=== PATIENT | female | born 1995 | race Two or more races ===

== ENCOUNTER 2023-04-20 19:37 | Emergency (ER) | payer MEDICAID ==
[~2023-04-20] VITALS: Ht 157.5 cm; Wt 100.0 kg
[2023-04-20] MEDS ORDERED: GuaiFENesin/D-METHORPHAN [SUGAR-FREE] 200-20MG/10 ML SYRUP UDCUP PO ONE (20:15)
[2023-04-20] MEDS ORDERED: KETOROLAC TROMETHAMINE 60 MG/2 ML VIAL IM ONE (20:15)
[2023-04-20] MEDS ORDERED: ACETAMINOPHEN/CODEINE 300-30 MG TABLET PO ONE (20:15)
[2023-04-20 20:44] LABS: COVID AG,FIA SOURCE NASAL SWAB
[2023-04-20 21:13] LABS: SARS-COV2 (COVID) ANTIGEN,FIA Negative (Negative)
[2023-04-20 21:13] LABS: BASOPHILS % (AUTO) 0.4 % (0.0-2.0); EOSINOPHILS % (AUTO) 0.1 % (1.0-6.0); HEMATOCRIT 31.4 % (36-46); HEMOGLOBIN 10.8 g/dL (12.0-16.0); LYMPHOCYTES # (AUTO) 2.4 K/uL (1.0-4.8); LYMPHOCYTES % (AUTO) 35.4 % (22.0-44.0); MEAN CORPUSCULAR HEMOGLOBIN 31.6 pg (26.0-34.0); MEAN CORPUSCULAR HGB CONC 34.5 G/dL (31.0-37.0); MEAN CORPUSCULAR VOLUME 91 fL (80-100); MONOCYTES # (AUTO) 0.9 K/uL (0.1-1.0); MONOCYTES % (AUTO) 13.1 % (2.0-9.0); NEUTROPHILS # (AUTO) 3.5 K/uL (1.8-7.7); PLATELET COUNT (AUTO) 305 K/uL (150-450); RED BLOOD CELL COUNT(AUTO) 3.43 MIL/uL (4.00-5.20); RED CELL DISTRIBUTION WIDTH 14.1 % (11.5-14.5); WHITE BLOOD COUNT (AUTO) 6.8 K/uL (4.5-11.0)
[2023-04-20 21:15] LABS: INFLUENZA TYPE A NEGATIVE FOR TYPE A (NEGATIVE); INFLUENZA TYPE B NEGATIVE FOR TYPE B (NEGATIVE)
[2023-04-20 21:17] LABS: APPEARANCE,URINE HAZY (CLEAR); BILIRUBIN,URINE NEGATIVE (NEGATIVE); COLOR,URINE YELLOW (YELLOW); GLUCOSE, URINE (UA) NEGATIVE (NEGATIVE); KETONES,URINE NEGATIVE (NEGATIVE); LEUKOCYTE ESTERASE ,URINE LARGE (NEGATIVE); NITRATE,URINE NEGATIVE (NEGATIVE); OCCULT BLOOD,URINE LARGE (NEGATIVE); PH,URINE 7.5 (5.0-8.0); PROTEIN,URINE TRACE mg/dL (NEGATIVE); SPECIFIC GRAVITIY, URINE 1.014 (1.003-1.030)
[2023-04-20 21:19] LABS: ANION GAP 6 mmol/L (8-16); CALCIUM, TOTAL 8.5 mg/dL (8.8-10.5); CARBON DIOXIDE 28 mmol/L (22-29); CHLORIDE 104 mmol/L (98-107); CREATININE 0.75 mg/dL (0.60-1.30); GLOMERULAR FILTR. RATE CALC > 60 mL/min (>60); GLUCOSE,RANDOM 103 mg/dL (70-110); POTASSIUM 3.8 mmol/L (3.5-5.1); SODIUM SERUM 138 mmol/L (136-145); UREA NITROGEN, BLOOD 9 mg/dL (7-18)
[2023-04-20 21:40] LABS: SQUAMOUS EPITHELIAL CELL,UR Many /LPF (None Seen)
[2023-04-20 21:42] LABS: BACTERIA,URINE Moderate /HPF (None Seen)
[2023-04-20 21:49] LABS: HCG,QUAL URINE NEGATIVE (NEGATIVE)
[2023-04-20] MEDS ORDERED: IBUP-1554 PO (22:05)
[2023-04-20] MEDS ORDERED: ACET-2080 PO (22:05)
[2023-04-20] MEDS ORDERED: CEPH-558 PO (22:05)
[2023-04-20] MEDS ORDERED: GUAIFDM PO (22:05)
[2023-04-20 22:21] VITALS: BP 129/74; PULSE 89; RESP 18; TEMP 98.3
== END 2023-04-20 23:13 | disposition home or self-care (01) ==
LOC: EMS 19:39
DX: J06.9 Acute upper respiratory infection, unspecified (principal); N39.0 Urinary tract infection, site not specified; R51.9 Headache, unspecified; Z20.822 Contact with and (suspected) exposure to COVID-19
CPT/HCPCS: 99284; 87426; 80048; 81001; 84703; 85025; 87804; 36415; 87086; 87186; 81025; 93005; 96372; J1885

== ENCOUNTER 2023-04-26 12:53 | Emergency (ER) | payer MEDICAID ==
[~2023-04-26] VITALS: Ht 152.4 cm; Wt 109.0 kg
[~2023-04-26 12:53] MED LIST: ACET-2080 PO; CEPH-558 PO; GUAIFDM PO; IBUP-1554 PO
[2023-04-26 12:57] VITALS: TEMP 98.3
[2023-04-26] MEDS ORDERED: METHOCARBAMOL 500 MG TABLET PO ONE (18:00)
[2023-04-26] MEDS ORDERED: METH-659 PO (18:24)
[2023-04-26 18:34] VITALS: BP 129/68; PULSE 72; RESP 16
== END 2023-04-26 18:36 | disposition home or self-care (01) ==
LOC: EMS 12:54
DX: M62.838 Other muscle spasm (principal); G44.209 Tension-type headache, unspecified, not intractable
CPT/HCPCS: 70450; 99284